=== PATIENT | female | born 1990 | race Caucasian/White ===

== ENCOUNTER 2017-05-17 08:49 | Emergency (ER) | payer MEDICAID ==
[~2017-05-17] VITALS: Ht 165.1 cm; Wt 83.9 kg
[2017-05-17 09:17] VITALS: BP 133/85
[2017-05-17] MEDS ORDERED: AZIT250T6 PO (09:36)
[2017-05-17] MEDS ORDERED: PRED20TA PO (09:36)
--- NOTE | 2017-05-17 09:36 | PHYS DOC ---
Past Medical History Past Medical History: Pneumonia Past Surgical History: No Surgical History Alcohol Use: None Drug Use: None Adult General Chief Complaint Chief Complaint: COUGH HPI HPI Patient is a 27 year old female presents the ED complaining of cough 3 days. Patient states the cough is productive. States she is coughing up green stuff. Complains of sore throat and rhinorrhea. States similar symptoms in the past were alleviated with azithromycin and prednisone. Sick contacts at home. Denies headache, chest pain, shortness of breath, dizziness, weakness, nausea/vomiting , body aches or syncope. Review of Systems Review of Systems Constitutional: Denies fever or chills [] Eyes: Denies change in visual acuity, redness, or eye pain [] HENT:Complains of sore throat and rhinorrhea.[] Respiratory: Complains of cough. Denies shortness of breath [] Cardiovascular: No additional information not addressed in HPI [] GI: Denies abdominal pain, nausea, vomiting, bloody stools or diarrhea [] : Denies dysuria or hematuria [] Musculoskeletal: Denies back pain or joint pain [] Integument: Denies rash or skin lesions [] Neurologic: Denies headache, focal weakness or sensory changes [] Endocrine: Denies polyuria or polydipsia [] All other systems were reviewed and found to be within normal limits, except as documented in this note. Physical Exam Physical Exam Constitutional: Well developed, well nourished, no acute distress, non-toxic appearance. [] HENT: Normocephalic, atraumatic, bilateral external ears normal, oropharynx moist, MILD PHARYNGEAL ERYTHEMA. No oral exudates, nose normal. [] Eyes: PERRLA, EOMI, conjunctiva normal, no discharge. [] Neck: Normal range of motion, no tenderness, supple, no stridor. [] Cardiovascular:Heart rate regular rhythm, no murmur [] Lungs & Thorax: Bilateral breath sounds clear to auscultation [] Abdomen: Bowel sounds normal, soft, no tenderness, no masses, no pulsatile masses. [] Skin: Warm, dry, no erythema, no rash. [] Back: No tenderness, no CVA tenderness. [] Extremities: No tenderness, no cyanosis, no clubbing, ROM intact, no edema. [] Neurologic: Alert and oriented X 3, normal motor function, normal sensory function, no focal deficits noted. [] Psychologic: Affect normal, judgement normal, mood normal. [] Current Patient Data Vital Signs Vital Signs Date Time Temp Pulse Resp B/P (MAP) Pulse Ox O2 Delivery O2 Flow Rate FiO2 05/17/17 09:17 98.2 75 18 97 Room Air 98.2 EKG EKG [] Radiology/Procedures Radiology/Procedures [] Course & Med Decision Making Course & Med Decision Making Pertinent Labs and Imaging studies reviewed. (See chart for details) []Will treat with azithromycin and prednisone. Discussed [id number] symptomatic treatment. Discussed follow-up with PCP later this week. Discussed reasons to return to the ED. Patient understands and agrees with plan. Dragon Disclaimer Dragon Disclaimer This electronic medical record was generated, in whole or in part, using a voice recognition dictation system. Departure Departure Impression: Primary Impression: Cough Additional Impression: Pharyngitis Disposition: 01 HOME, SELF-CARE Condition: STABLE Referrals: NO PCP (PCP) ALDAIR FERRIS MD Patient Instructions: Cough, Adult, Viral and Bacterial Pharyngitis Scripts Prednisone (PREDNISONE) 20 Mg Tablet 2 TAB PO DAILY, #10 TAB Prov: LIDA GRIFFITHS 05/17/17 Azithromycin (AZITHROMYCIN TABLET) 250 Mg Tablet 1 PKG PO UD, #6 TAB Prov: LIDA GRIFFITHS 05/17/17 Problem Qualifiers LIDA GRIFFITHS May 17, 2017 09:36
== END 2017-05-17 09:46 | disposition home or self-care (01) ==
LOC: ER 08:49
DX: J02.9 Acute pharyngitis, unspecified (principal); Z87.01 Personal history of pneumonia (recurrent)
CPT/HCPCS: 99283